=== PATIENT | female | born 1950 | race Caucasian/White ===

== ENCOUNTER → 2020-10-31 | Outpatient (CLI) | payer MEDICARE, OTHER ==
[~2020-10-31] MED LIST: ACETAMINOPHEN-1 EAC1 PO; BACTROBAN22 GM TP; DOXYCYCLINE 10100 MG PO; HYDROCODONE-AP1 EAC6 PO; IBUPROFEN 800800 M1 PO; IBUPROFEN 800800 MG PO; NORCO 5-325 TA1 EACH PO; TRIPLE ANTIBIOT28 G2 TP; ZYRTEC10 M5 PO
== END ==
LOC: M.MRI 13:30
PROVIDERS: ATTEND Family Medicine
DX: S82.144A Nondisplaced bicondylar fracture of right tibia, initial encounter for closed fracture (principal); S83.241A Other tear of medial meniscus, current injury, right knee, initial encounter; M25.461 Effusion, right knee; M94.261 Chondromalacia, right knee; X58.XXXA Exposure to other specified factors, initial encounter; Y93.89 Activity, other specified; Y92.89 Other specified places as the place of occurrence of the external cause; Y99.8 Other external cause status